=== PATIENT | female | born 1955 | race Caucasian/White ===

== ENCOUNTER 2016-11-08 08:07 | Emergency (ER) | payer MEDICARE, OTHER ==
[2016-11-08] MEDS ORDERED: ACETAMINOPHEN 325 MG TABLET PO ONE (08:16)
--- NOTE | 2016-11-08 10:38 | ER Document Report ---
ED General - General Chief Complaint: Facial Injury Stated Complaint: FALL/RIGHT FACIAL PAIN TRAVEL OUTSIDE OF THE [place] IN LAST 30 DAYS: No - HPI Patient complains to provider of: fall bruising to the right cheek Notes: Patient coming in for evaluation of a facial contusion after being pushed out of bed by her dog rolling hitting her head on an bed stand. Patient upon initial evaluation alert and oriented complains of some mild blurry vision does have bruising to the right orbit and right zygomatic arch. Patient states that she saw stars no loss consciousness is no neck pain. - Related Data Allergies/Adverse Reactions: codeine [Codeine] Allergy (Severe, Verified 11/08/16 08:15) rash, sob morphine [Morphine] Allergy (Severe, Verified 11/08/16 08:15) Anaphylaxis Penicillins Allergy (Severe, Verified 11/08/16 08:15) throat swelling Past Medical History - Social History Smoking Status: Never Smoker Chew tobacco use (# tins/day): No Frequency of alcohol use: None Drug Abuse: None Family History: Reviewed & Not Pertinent Patient has suicidal ideation: No Patient has homicidal ideation: No - Past Medical History Cardiac Medical History: Reports: Hx Hypertension Denies: Hx Coronary Artery Disease, Hx Heart Attack Pulmonary Medical History: Denies: Hx Asthma, Hx Bronchitis, Hx COPD, Hx Pneumonia Neurological Medical History: Reports: Hx Seizures - Grand mal/last x 5 years ago. Denies: Hx Cerebrovascular Accident Endocrine Medical History: Reports: Hx Diabetes Mellitus Type 2 Renal/ Medical History: Denies: Hx Peritoneal Dialysis Musculoskeltal Medical History: Denies Hx Arthritis Past Surgical History: Reports: Hx Appendectomy, Hx Hysterectomy, Hx Orthopedic Surgery - L4-L5 fusion - Immunizations Hx Diphtheria, Pertussis, Tetanus Vaccination: No Hx Pneumococcal Vaccination: 05/23/14 Review of Systems - Review of Systems Constitutional: No symptoms reported EENT: Other - Bruising to the face Cardiovascular: No symptoms reported Respiratory: No symptoms reported Gastrointestinal: No symptoms reported Genitourinary: No symptoms reported Female Genitourinary: No symptoms reported Musculoskeletal: No symptoms reported Skin: No symptoms reported Hematologic/Lymphatic: No symptoms reported Neurological/Psychological: No symptoms reported Physical Exam - Vital signs Vitals: Temp Pulse Resp BP Pulse Ox 97.9 F 94 24 H 125/75 96 11/08/16 08:13 11/08/16 08:13 11/08/16 08:13 11/08/16 08:13 11/08/16 08:13 Interpretation: Normal - General General appearance: Appears well, Alert - HEENT Head: Normocephalic. No: Atraumatic - Patient has bruising to his medical arts mild swelling to the inferior right orbit Eyes: Normal Extraocular movements intact: Yes Eyelashes: Normal Pupils: PERRL Anterior chamber: Normal Fundascopic: Normal Ears: Normal External canal: Normal Tympanic membrane: Normal Sinus: Normal Nasal: Normal Mouth/Lips: Normal Pharynx: Normal Neck: Normal - Respiratory Respiratory status: No respiratory distress Chest status: Nontender Breath sounds: Normal Chest palpation: Normal - Cardiovascular Rhythm: Regular Heart sounds: Normal auscultation Murmur: No - Abdominal Inspection: Normal Distension: No distension Bowel sounds: Normal Tenderness: Nontender Organomegaly: No organomegaly - Back Back: Normal, Nontender - Extremities General upper extremity: Normal inspection, Nontender, Normal color, Normal ROM , Normal temperature General lower extremity: Normal inspection, Nontender, Normal color, Normal ROM , Normal temperature, Normal weight bearing. No: Tate's sign - Neurological Neuro grossly intact: Yes Cognition: Normal Orientation: AAOx4 [place] Coma Scale Eye Opening: Spontaneous [place] Coma Scale Verbal: Oriented [place] Coma Scale Motor: Obeys Commands [place] Coma Scale Total: 15 Speech: Normal Motor strength normal: LUE, RUE, LLE, RLE Sensory: Normal - Psychological Associated symptoms: Normal affect, Normal mood - Skin Skin Temperature: Warm Skin Moisture: Dry Skin Color: Normal Course - Re-evaluation Re-evalutation: 11/08/16 14:58 CT scans are negative. Patient will be treated for pain. Discharged home - Vital Signs Vital signs: Temp Pulse Resp BP Pulse Ox 97.7 F 97 18 132/60 H 97 11/08/16 10:58 11/08/16 10:58 11/08/16 10:58 11/08/16 10:58 11/08/16 10:58 Discharge - Discharge Clinical Impression: Facial contusion Qualifiers: Encounter type: initial encounter Qualified Code(s): S00.83XA - Contusion of other part of head, initial encounter Condition: Good Disposition: HOME, SELF-CARE Instructions: Contusion ([facility]), Oral Narcotic Medication ([facility]) Additional Instructions: Follow-up with primary care physician. Take medication as prescribed. Take Tylenol Motrin for pain control. Prescriptions: Hydrocodone Bit/Acetaminophen [Hydrocodon-Acetaminophen 5-325] 1 each PO Q6 #10 tablet Referrals: TORSTEN BLACKMON MD [Primary Care Provider] - Follow up in 3-5 days
[2016-11-08 10:59] VITALS: BP 132/60
== END 2016-11-08 10:59 | disposition home or self-care (01) ==
LOC: ER 08:07
DX: S00.83XA Contusion of other part of head, initial encounter (principal); S00.11XA Contusion of right eyelid and periocular area, initial encounter; W06.XXXA Fall from bed, initial encounter; Y93.84 Activity, sleeping; H53.8 Other visual disturbances; Z88.0 Allergy status to penicillin; Z87.892 Personal history of anaphylaxis; Z88.5 Allergy status to narcotic agent; I10 Essential (primary) hypertension; E11.9 Type 2 diabetes mellitus without complications
CPT/HCPCS: 99283; 70450; 70486; A9270